=== PATIENT | female | born 1950 | race Caucasian/White ===

== ENCOUNTER → 2016-05-09 | Emergency (ER) | payer MEDICARE ==
[~2016-05-09] MED LIST: Fluorescein Opthalmic Strip ONE; Tetracaine HCl 0.5% Ophth Soln 2 ML Bottle ONE
== END ==
LOC: BURERS 18:51
DX: S05.01XA Injury of conjunctiva and corneal abrasion without foreign body, right eye, initial encounter (principal); X58.XXXA Exposure to other specified factors, initial encounter
CPT/HCPCS: 99283

== ENCOUNTER 2016-07-10 09:32 | Outpatient (CLI) | payer MEDICARE ==
[2016-07-10 16:46] LABS: Eosinophils 3 % (0-10); Hemoglobin 13.7 g/dL (12.0-16.0); Large Platelets SLIGHT; Lymphocytes 41 % (21-51); MDiff Complete? YES; Mean Corpuscular HGB CONC 32.5 g/dL (32.0-36.0); Mean Corpuscular Hemoglobin 28.9 pg (27.0-31.0); Mean Corpuscular Volume 88.7 fl (81.0-99.0); Mean Platelet Volume 13.8 fL (7.4-10.4); Monocytes 10 % (0-10); Neutrophil 45 % (42-75); Platelet Count 120 thou/uL (130-400); RBC Distribution Width 14.7 % (11.5-14.5); Red Blood Cell (RBC) Count 4.76 mill/uL (4.20-5.40); White Blood Cell (WBC) Count 3.5 thou/uL (4.8-10.8)
[2016-07-10 17:09] LABS: ALT (SGPT) 15 U/L (8-55); AST (SGOT) 14 U/L (5-34); Albumin 4.5 g/dL (3.4-4.8); Alkaline Phosphatase 60 U/L (40-150); Anion Gap 13 mmol/L (10-20); BUN (Urea Nitrogen) 15 mg/dL (9.8-20.1); Bilirubin, Total 1.2 mg/dL (0.2-1.2); Calc. Creatinine Clearance 0 mL/min (70-130); Calcium 9.4 mg/dL (7.8-10.44); Carbon Dioxide 26 mmol/L (23-31); Cardiac Risk 3.3 (Less than 4.5); Chloride 109 mmol/L (98-107); Cholesterol 208 mg/dl (< 200 Desired); Estimated GFR-MDRD 72; Globulin 2.3 g/dL (2.4-3.5); Glucose 100 mg/dL (80-115); HDL Cholesterol 63 mg/dL (>60 Neg Risk); LDL Cholesterol, Calculated 127 mg/dL; Potassium 4.9 mmol/L (3.5-5.1); Protein, Total 6.8 g/dL (6.0-8.3); Sodium 143 mmol/L (136-145); Triglycerides 88 mg/dL (Less than 150)
[2016-07-10 17:10] LABS: Hemoglobin A1c 5.8 % (4.0-6.0)
[2016-07-10 17:35] LABS: Thyroid Stimulating Hormone 2.3814 uIU/mL (0.35-4.94); Vitamin D, 25 Hydroxy 34.1 ng/ml (> 30.0)
== END 2016-07-10 09:33 | disposition home or self-care (01) ==
LOC: LABLEX 09:32
PROVIDERS: ATTEND Family Medicine
DX: E55.9 Vitamin D deficiency, unspecified (principal); R73.09 Other abnormal glucose; D69.6 Thrombocytopenia, unspecified
CPT/HCPCS: 80053; 80061; 82306; 83036; 84443; 85025

== ENCOUNTER 2016-08-21 09:45 | Outpatient (CLI) | payer MEDICARE ==
[2016-08-21 16:47] LABS: ALT (SGPT) 12 U/L (8-55); AST (SGOT) 13 U/L (5-34); Albumin 4.1 g/dL (3.4-4.8); Alkaline Phosphatase 68 U/L (40-150); Bilirubin, Direct 0.4 mg/dL (0.1-0.3); Bilirubin, Total 0.9 mg/dL (0.2-1.2); Protein, Total 6.2 g/dL (6.0-8.3)
== END 2016-08-21 09:46 | disposition home or self-care (01) ==
LOC: LABLEX 09:45
PROVIDERS: ATTEND Family Medicine
DX: B35.1 Tinea unguium (principal)
CPT/HCPCS: 80076

== ENCOUNTER 2024-12-22 09:50 | Outpatient (CLI) | payer MEDICARE, OTHER ==
[2024-12-22] MEDS ORDERED: Iopamidol 370 76% 100 ML VIAL ONE (10:17)
== END 2024-12-22 09:51 | disposition home or self-care (01) ==
LOC: BURCT 09:50
PROVIDERS: ATTEND Family Medicine
DX: R51.9 Headache, unspecified (principal)
CPT/HCPCS: 70470; Q9967